=== PATIENT | male | born 1945 | race Caucasian/White ===

== ENCOUNTER 2023-11-26 06:19 | Observation (INO) ==
--- NOTE | 2023-11-01 09:32 | PAT Medication Instructions ---
Medication Instructions Date of Service November 01, 2023 Home Medications cetirizine 10 mg tablet (Zyrtec) 10 mg PO DAILY PRN Allergy Symptoms cholecalciferol (vitamin D3) 50 mcg (2,000 unit) tablet 50 mcg PO HS gabapentin 100 mg capsule 100 mg PO HS metoprolol succinate 50 mg tablet,extended release 24 hr 50 mg PO HS montelukast 10 mg tablet 10 mg PO HS omeprazole 20 mg capsule,delayed release 20 mg PO BID rosuvastatin 10 mg tablet 10 mg PO HS tamsulosin 0.4 mg capsule 0.4 mg PO HS DO NOT take the morning of surgery cetirizine 10 mg tablet (Zyrtec) 10 mg PO DAILY PRN Allergy Symptoms Take morning of surgery With a small sip of water, OTHERWISE NOTHING TO EAT OR DRINK AFTER MIDNIGHT: omeprazole 20 mg capsule,delayed release 20 mg PO BID Take evening before surgery cetirizine 10 mg tablet (Zyrtec) 10 mg PO DAILY PRN Allergy Symptoms (if needed) cholecalciferol (vitamin D3) 50 mcg (2,000 unit) tablet 50 mcg PO HS gabapentin 100 mg capsule 100 mg PO HS metoprolol succinate 50 mg tablet,extended release 24 hr 50 mg PO HS montelukast 10 mg tablet 10 mg PO HS omeprazole 20 mg capsule,delayed release 20 mg PO BID rosuvastatin 10 mg tablet 10 mg PO HS tamsulosin 0.4 mg capsule 0.4 mg PO HS Other Notes If you have any questions please call us at [phone] or [phone] or [phone] or [phone]
--- NOTE | 2023-11-04 10:34 | Anesthesiology Consultation ---
Date of Service November 04, 2023 Assessment & Plan (1) Encounter for pre-operative examination: - awaiting [facility] PCP response to optimization form regarding hyperkalemia and abnormal CXR. Surgeon's office made aware. Left message requesting patient return call. - will request 09/2023 cardiology office note, Dr. Ballesteros, and nuclear findings of 08/01/22 stress echo if available for chart completion. Chart Review Chart Review: Pending: Refer to Additional Notes / Consult section and Patient seen in Pre Admission Testing Teaching & Discussion Pre-Anesthesia Teaching/Discussion Notes: Instructed NPO after midnight before surgery, except medications with 15 cc of water. Medication instructions provided according to the PAT guidelines. History Surgery Operation Date: 11/26/23 12:20 Proposed Procedures p Right Total Knee Arthroplasty - Wicho Hernandez DO Height/Weight Height: 5 ft 8 in Weight: 89.1 kg Allergies Allergy/AdvReac Type Severity Reaction Status Date / Time azithromycin Allergy Severe Anaphylaxis Verified 11/04/23 14:16 Penicillins Allergy Intermediate FEET SWELL Verified 10/29/23 13:38 bee venom protein (honey bee) Allergy Verified 11/04/23 10:27 [id number] Reductase Allergy Verified 11/04/23 10:27 Inhibitor Medications Home Medications Medication Instructions Recorded Confirmed Last Taken gabapentin 100 mg capsule 100 mg PO HS 10/29/23 10/29/23 Unknown metoprolol succinate 50 mg 50 mg PO HS 10/29/23 10/29/23 Unknown tablet,extended release 24 hr montelukast 10 mg tablet 10 mg PO HS 10/29/23 10/29/23 Unknown omeprazole 20 mg capsule,delayed 20 mg PO BID 10/29/23 10/29/23 Unknown release rosuvastatin 10 mg tablet 10 mg PO HS 10/29/23 10/29/23 Unknown tamsulosin 0.4 mg capsule 0.4 mg PO HS 10/29/23 10/29/23 Unknown calcium carb-vit D3-minerals 600 1 tab PO QAM 11/04/23 11/04/23 Unknown mg calcium-400 unit tablet celecoxib 200 mg capsule 200 mg PO DAILY 11/04/23 11/04/23 Unknown Additional Notes: Medication list reconciled with home med list at PAT visit. He was instructed and it was written on provided medication instructions to contact surgeon's office for celecoxib instructions and to stop calcium vitamin D supplement the morning of surgery. He verbalized understanding and agreement, denied additional medication changes, questions or concerns. Past Medical History Medical History (Updated 11/04/23 @ 14:18 by Jess Garcia PA-C) CKD (chronic kidney disease) stage 3, GFR 30-59 ml/min Dysphagia occasionally due to hiatal hernia per pt; denies choking-chronic denies change or worsening GERD (gastroesophageal reflux disease) controlled, stable per pt Hearing deficit Hiatal hernia Hx of gout Hyperlipidemia Hypertension controlled, stable per pt Mild aortic valve stenosis Patient denies h/o stroke, seizures, heart attack, heart failure, DM, blood clots/DVTs or blood transfusions. Exercise / Class Metabolic Activity II 4-5 Yardwork/Stairs/Walk up hill (denies chest discomfort or shortness of breath with 1 FOS, ambulates with cane) Past Family History Family History Other No family history of adverse response to anesthesia Past Surgical History Surgical History H/O arthroscopy of right knee History of appendectomy History of colonoscopy History of lumbar surgery History of tonsillectomy History of tooth extraction History of total hip arthroplasty rt/left Hx of vasectomy Past Anesthesia History No Hx of Anesthesia Complications and No Family Hx of Anesthesia Complications History of PONV No Hx of PONV and No Hx of Motion Sickness Social History Smoking Status: Never smoker Do You Dip or Chew Tobacco: No (quit 07/2023) Hx Alcohol Use: Yes Alcohol type: beer alcohol intake frequency: 0-2 drinks per day Alcohol Intake Frequency Comment: 1-3 beers daily substance use type: does not use Review of Systems Snoring, denies witnessed apneas. Patient denies chest pain, shortness of breath, dyspnea on exertion, fever, chills, cough, wheezing, or palpitations. Physical Exam Vital Signs Vitals BP 166/80 manual (Pt notes some anxiety in clinic, states BP at home is usually 120s/70s) P 64 TEMP 98.2 SP02 97% on RA RESP 18 Physical Patient resting comfortably in chair in no acute distress, alert and oriented, responding appropriately throughout visit Full cervical extension range of motion without pain TMD 3.5 finger breadths Mallampati Score 3 Dentition: intact, denies chipped or loose teeth, caps/crowns, implants or bridges Lungs: normal respiratory effort. Good air movement, clear throughout to auscultation, no adventitious breath sounds Cardiac: regular rate and rhythm, no murmurs noted Carotid arteries: negative bruit bilat Lab Results Anesthesia Preop Results Results Anesthesia Widget: WBC 5.64 K/ul (4.8-10.8) 11/04/23 Hgb 13.9 g/dl (14.0-18.0) L 11/04/23 Hct 41.9 % (42.0-52.0) L 11/04/23 Plt 213 K/uL (130-400) 11/04/23 Na 139 mmol/L (136-145) 11/04/23 K 5.3 mmol/L (3.5-5.1) H 11/04/23 Cl 106 mmol/L (98-107) 11/04/23 CO2 28 mmol/L (21-32) 11/04/23 BUN 20 mg/dl (6-23) 11/04/23 Creat 1.13 mg/dl (0.6-1.4) 11/04/23 Glucose Level 111 mg/dl (70-99(Fasting)) H 11/04/23 PT 10.6 Seconds (9.0-12.0) 11/04/23 PTT 26 Seconds (21-31) 11/04/23 INR 1.0 (0.9-1.1) 11/04/23 Blood Type A Positive 11/04/23 Antibody Screen NEGATIVE 11/04/23 Testing Electrocardiogram Date: 11/04/23 NSR, rate 64 bpm Left axis deviation Chest X-Ray Date: 11/04/23 2.8 cm retrocardiac opacity, as described above. This is likely artifactual. However, a chest CT is recommended to exclude a pulmonary nodule. Echocardiogram Date: 09/14/23 EF 55% Mildly dilated LA No regional wall motion abnormalities Aortic valve is trileaflet and is moderately thickened. Degenerated AV, mild (ALICIA 1.2 cm2, mean PG 14.3 mmHg) Stress Test Date: 08/01/22 Lexiscan MPHR not reported Negative for ischemia Nuclear findings are reported separately
--- NOTE | 2023-11-26 06:31 | History & Physical Bridge Note ---
Date of Service November 26, 2023 History & Physical Bridge Note I have examined the patient, reviewed the History & Physical and in the interval since the performance of the History & Physical I have noted the following changes of clinical significance: no changes noted
[2023-11-26] MEDS ORDERED: ROPIVACAINE 0.5% 5 MG/ML 30 ML VIAL ONE (06:32)
[2023-11-26] MEDS ORDERED: BUPIVACAINE 0.5 % 5 MG/1 ML PF 10ML VIAL ONE (06:32)
[2023-11-26] MEDS: ACETAMINOPHEN 500 MG TAB PO SCH ×2 (06:55→22:56)
[2023-11-26] MEDS: GABAPENTIN 300 MG CAP PO SCH (06:55)
[2023-11-26] MEDS: LR 60ML/HR IV SCH (06:55)
[2023-11-26] MEDS: dexAMETHasone**PF** 10 MG/ML VIAL IV SCH (06:56)
[2023-11-26] MEDS ORDERED: MIDAZOLAM HCL 1 MG/ML 2ML VIAL ONE (06:56)
[2023-11-26] MEDS ORDERED: PROPOFOL IV EMULSION 10 MG/ML 20 ML VIAL IV ONE ×2 (06:59→09:21)
[2023-11-26] MEDS ORDERED: ePHEDrine sulfate 50 MG/ML AMP IV PRN (07:06)
[2023-11-26] MEDS ORDERED: fentaNYL citrate PF 100 MCG/2 ML VIAL IV PRN (07:06)
[2023-11-26] MEDS ORDERED: ONDANSETRON INJ 2 MG/ML 2 ML VIAL IV PRN ×2 (07:06→11:19)
[2023-11-26] MEDS ORDERED: ATROPINE SULFATE 0.1 MG/ML 10ML SYR IV PRN (07:06)
[2023-11-26] MEDS: TRANEXAMIC ACID 1,000 MG **IV Pre-op IV SCH (07:43)
[2023-11-26] MEDS: ceFAZolin 2000MG 2,000 MG/15 ML SYR IV SCH ×2 (07:55→14:46)
[2023-11-26] MEDS ORDERED: KETAMINE HCL 10MG/ML SYR ONE (08:12)
[2023-11-26] MEDS: ROPIVACAINE 0.5% HCL/PF 246 MG, Ketorolac (*for OR use only*) 30 MG, EPINEPHrine 30MG/3... INFIL SCH (08:38)
[2023-11-26] MEDS ORDERED: PHENYLEPHRINE 100MCG/ML 10ML SYR IV ONE (08:55)
--- NOTE | 2023-11-26 09:12 | Operative Report ---
PG Post Operative Report Pre & Post Diagnosis Operation Date: 11/26/23 08:00 Pre-Op Diagnosis: Degenerative Joint Disease Right Knee Post-Op Diagnosis: Degenerative Joint Disease Right Knee I identified the patient and participated in the time-out.: Yes Procedure Operation Date: 11/26/23 08:00 Actual Procedures p Right Total Knee Arthroplasty(Right) - Wicho Hernandez DO Surgeon Wicho Hernandez DO Manager Development Wicho Holman PA-C Estimated Blood Loss 30 Findings Consistent with Post-Op Diagnosis Specimens Right femoral and tibial bone Description of Procedure Implants used: I used a Vanesa Persona total knee arthroplasty system with a size 8 standard PS femur, F tibia, 34 oval patella, and a size 12 CPS polyethylene bearing. All components were cemented in place with Biomet cement. Tab arrived [facility] for the above procedure. He was seen in the preoperative holding area and the operative extremity was identified and signed. He was given a preoperative antibiotic, TXA, a spinal anesthetic and an adductor nerve block. He was taken back to the operating room and laid on the table in supine position. He was given basic sedation. The operative knee was then prepped and draped in sterile fashion. A timeout was done, and the patient and the operative extremity was properly identified. A midline incision was made directly over the patella. Dissection was taken down to the extensor mechanism. A medial parapatellar arthrotomy was used. The medial retinaculum was released and the fat pad was mostly excised. The knee was flexed and the ACL, PCL, and meniscus were removed. A drill was sent down the center of the femoral canal followed by an intramedullary elizabeth. Off that elizabeth a distal femoral cutting block was placed. 9 mm was resected off the distal femur at 5 of valgus. A posterior referencing AP sizing guide was then placed on the distal femur. The femur measured to be a size 8. 2 drill holes were placed in 3 of external rotation. A 4-in-1 cutting block was then impacted into place. Anterior, posterior, and chamfer cuts were then made. The proximal tibia was then exposed. An external tibial alignment guide was placed. A tibial cut guide was then anchored in place and the proximal tibia was then resected. The posterior aspect of the knee was then op ened up and any additional meniscus fragments and osteophytes were removed. The tibia measured to be a size F. The tibial plate was then placed in the appropriate rotation and the tibia was drilled and punched. Trial components were then placed. I used a size 12 CPS polyethylene insert. The knee was brought through a full range of motion and felt to be stable. The peg holes for the femoral component were then drilled. The patella was then everted and 9 mm was resected off the posterior aspect of the patella. The patella measured to be a size 34 oval. 3 peg holes were then drilled. A trial patella was placed. The knee was once again brought through a full range of motion and felt to be stable. Trial components were then removed. The surrounding soft tissues were injected with 100 cc of an orthopedic pain control cocktail. All components were then cemented into place with Biomet cement. The final polyethylene insert was then snapped into place. Once cement was dry the tourniquet was deflated. Hemostasis was obtained. A dilute betadyne lavage was then done for 3 minutes. The joint was then irrigated with normal saline solution. The medial parapatellar arthrotomy was then closed with #1 Vicryl suture. The skin was closed with 2-0 Vicryl, 3-0V lock suture, and kathy. A soft compressive dressing was placed. He was then transferred to a hospital bed and taken to the postanesthesia care unit in stable condition. He tolerated the procedure well. iWcho Holman PA-C, was present for the entire procedure. He was critical for patient positioning, prepping, draping, retraction exposure, wound closure and application of sterile dressing. I attest to the content of the Intraoperative Record and any orders documented therein. Any exceptions are noted below.
[2023-11-26] MEDS: TRANEXAMIC ACID 1,000 MG **IV Intra-op IV SCH (09:19)
--- NOTE | 2023-11-26 10:11 | XRay Report ---
TWO VIEWS RIGHT KNEE CLINICAL HISTORY: Postoperative examination. FINDINGS: AP and crosstable lateral portable views of the right knee are obtained. A right knee arthr oplasty is in near anatomic alignment. There has been undersurface remodeling of the patella. No acut e fracture is seen. There are expected postoperative changes around the knee including skin clips, so ft tissue edema, and subcutaneous gas. IMPRESSION: Expected postoperative changes status post right knee arthroplasty. No acute fracture is seen. ACT 112: Negative or not required by law. Electronically signed by: Waldo Nicholson M.D. 11/26/2023 10:10 AM
--- NOTE | 2023-11-26 11:17 | Anesthesiology Progress Note ---
Date of Service November 26, 2023 Anesthesia Post Procedure Vital Signs Vital Signs: Temp Pulse Pulse Resp BP Pulse Ox O2 Del Method 11/26/23 10:51 36.4 C L 64 16 154/78 H 99 Room Air 11/26/23 10:30 61 25 H 161/79 H 97 Room Air 11/26/23 10:20 36.4 C L 66 12 148/77 H 96 Room Air 11/26/23 10:10 60 16 153/74 H 94 Room Air 11/26/23 10:00 62 20 152/76 H 98 Oxymask 11/26/23 09:50 66 20 145/73 H 98 Oxymask 11/26/23 09:40 65 20 134/68 97 Oxymask 11/26/23 09:33 36.6 C 76 14 142/66 H 94 Oxymask 11/26/23 06:43 36.5 C 70 16 204/79 H 98 Room Air O2 Flow Rate 11/26/23 10:51 11/26/23 10:30 11/26/23 10:20 11/26/23 10:10 11/26/23 10:00 4 11/26/23 09:50 4 11/26/23 09:40 4 11/26/23 09:33 4 11/26/23 06:43 Pain Intensity Right Knee: Pain Intensity: 3 Notes Mental Status: alert / awake / arousable Patient Amnestic to Procedure: Yes Nausea / Vomiting: adequately controlled Pain: adequately controlled Airway Patency, RR, SpO2: stable & adequate BP & HR: stable & adequate Hydration State: stable & adequate Neuraxial Anesthesia: was administered and sensory block is resolving Anesthetic Complications: no major complications apparent
[2023-11-26] MEDS ORDERED: bisacodyL 10 MG SUPP PR PRN (11:19)
[2023-11-26] MEDS ORDERED: NALOXONE HCL 0.4 MG/1 ML VIAL/CARP IV PRN (11:19)
[2023-11-26] MEDS ORDERED: MAGNESIUM HYDROXIDE SUSP 30 ML UDC PO PRN (11:19)
[2023-11-26] MEDS ORDERED: METOCLOPRAMIDE HCL INJ 5 MG/ML 2 ML VIAL IV PRN (11:19)
[2023-11-26] MEDS ORDERED: HYDROmorphone INJ 0.5 MG/0.5 ML SYR IV PRN (11:19)
[2023-11-26] MEDS ORDERED: oxyCODONE HCL IR 5 MG TAB (IMMEDIATE RELEASE) PO PRN (11:19)
[2023-11-26] MEDS: SODIUM CHLORIDE 0.9% 1,000 ML IV SCH (13:17)
[2023-11-26] MEDS: KETOROLAC TROMETHAMINE 15 MG/ML VIAL IV SCH (14:01)
[2023-11-26] MEDS: DOCUSATE SODIUM 100 MG CAP PO SCH (20:36)
[2023-11-26] MEDS: METOPROLOL SUCC 50MG EXT REL TAB PO SCH (20:37)
[2023-11-26] MEDS: ASPIRIN 81 MG ECTAB PO SCH (20:37)
[2023-11-26] MEDS: GABAPENTIN 100 MG CAP PO SCH (20:38)
[2023-11-26] MEDS: ROSUVASTATIN CALCIUM 10 MG TAB PO SCH (20:38)
[2023-11-26] MEDS: MONTELUKAST SODIUM 10 MG TABLET PO SCH (20:38)
[2023-11-26] MEDS: TAMSULOSIN HCL 0.4 MG CAP PO SCH (20:38)
[2023-11-26] MEDS: SENNA 8.6 MG TAB PO SCH (20:38)
--- NOTE | 2023-11-27 06:31 | Orthopedic Progress Note ---
Date of Service November 27, 2023 Assessment & Plan (1) Status post right knee replacement: Overall he is doing well. He is not having much pain in the right knee. He will be seen by physical therapy today for ambulation and range of motion exercises. The nursing staff can change his dressing after physical therapy. He is on aspirin for DVT prophylaxis. He can be discharged home later today. He will follow-up orthopedics in 2 weeks. Stephane Barth was seen and examined at bedside this morning. Overall he is doing very well. He is not having much pain in the right knee. He has been up and ambulating to the bathroom. Has no complaints.. Review of Systems All systems reviewed & are unremarkable except as noted in HPI & below. Physical Exam On physical examination of the right knee, the dressing is clean and dry. His leg is out full extension. He has active dorsiflexion plantarflexion of his right ankle.. Results & Data Results & Data Laboratory Results . Diagnostic Findings Postoperative x-rays of the right knee show the prosthesis to be in anatomic alignment without any evidence of fracture complication, or loosening.. PG Care Time/CCT Total # of Minutes Spent Total Time Spent with Patient: Total time spent is greater than 50% in coordination of care (as documented) at patient's floor/unit and/or counseling patient: Coding Level of Care Code 25435 Post Operative Follow-Up Diagnoses Status post right knee replacement Z96.651
--- NOTE | 2023-11-27 06:32 | Discharge Summary ---
Date of Service November 27, 2023 Principal Diagnosis Same as "Discharge Diagnosis" noted below under Discharge Instructions. Discharge Exam On physical examination of the right knee, the dressing is clean and dry. His leg is out full extension. He has active dorsiflexion plantarflexion of his right ankle.. Discharge Data Procedures Performed Operation Date: 11/26/23 08:00 Actual Procedures p Right Total Knee Arthroplasty(Right) - Wicho Hernandez DO Ordered Studies 11/26/23 05:00 US - OR guided needle placemen Routine Hospital Course (1) Status post right knee replacement: On November 26, 2023 Tab arrived at [facility] and underwent a right knee replacement without complication. He had a spinal anesthetic. Postoperatively he was started on aspirin for DVT prophylaxis and transferred to the general orthopedic floors. His hospital course was uneventful. On postop day #1, his vital signs were stable and his pain was well-controlled. He was able to participate well with physical therapy doing ambulation and range of motion exercises. He was then discharged home. He will follow with orthopedics in 2 weeks. PG Care Time/CCT Total # of Minutes Spent Total Time Spent with Patient: Total time spent is greater than 50% in coordination of care (as documented) at patient's floor/unit and/or counseling patient: Discharge Plan Discharge Items Patient Disposition: Home - Self-Care Reason For Visit: Degenerative Joint Disease Right Knee Discharge Diagnosis: Right knee replacement Activity: Per Instructions section Non-emergency contact: Surgeon Call non-emergency contact if: your wound has increased redness and your wound has increased drainage Follow-up/Referrals: Faby Eduardo MD [Primary Care Provider] - Diet: Regular Addtl Attending Provider Instructions: Activity and Therapy Recommendations: * If you are using [facility] then therapy will be provided at your home until they feel you have accomplished all of your goals. * If you are using [facility] then Physical Therapy will be provided until they feel you are ready to start Outpatient Physical Therapy. * If you are not using home therapy then Outpatient Physical Therapy should start about 3-5 days from your day of surgery. Therapy will last about 6-10 weeks * It is important not to put a pillow under your knee when you are relaxing or sleeping. It is just as important to make sure you are getting your knee perfectly straight as it is to regain your knee bend. * You were shown a series of exercises in the hospital. Do these exercises three times each day including the exercises you were shown in physical therapy. * Get up and walk several times each day. For the first four weeks, try not to stand or walk for more than one hour at a time. If you do stand or walk for more than one hour, you will not hurt anything, but your leg will likely swell. * As you feel comfortable, you may change from the walker or crutches to a cane and then to independent walking. Medications: * Narcotic You will likely be sent home from the hospital with a prescription for the narcotic pain medication that worked best throughout your stay * Cefadroxil -take the antibiotic twice a day for 10 days to help prevent infection. * Aspirin Most patients will be required to take Aspirin 81mg twice a day for 6 weeks after surgery. This is obtained [id number] and a prescription is not necessary. * Other medications may be prescribed for specific circumstances. If you have any questions, please call the office at . * Resume previous home medications unless otherwise instructed TEDs/Elastic Stockings: The white elastic stockings help limit swelling and prevent blood clots from forming in your legs.~ The more you wear them, the more they work. Wear them for six weeks. Dressing Care: The dressing can be changed after physical therapy on postop day #1. Daily dry dressing changes for a few days, especially if the incision is still draining some. If the incision is not draining then you may leave the kathy open to air. If there is a little bit of drainage or if the kathy are getting stuck on your clothing then cover the incision with a dry dressing. The kathy will be removed at your 2 week follow-up appointment. Showering: You may shower 5 days from the day of surgery as long as the incision is no longer draining. You may shower with the kathy exposed. Let soapy water run over the kathy and pat them dry. Do not scrub or soak the incision. Things To Watch For: * Drainage from the incision site that occurs more than one week after your surgery. * Increased redness at the incision site. * Fever above 102 degrees Fahrenheit. * Unusual chest pain or shortness of breath. * Call [facility] at with any of the above problems Follow-Up Visit: Follow-up with Dr. Hernandez's PA (Wicho Holman) 2-3 weeks after your day of surgery. He will remove your kathy and answer any questions. If you have any additional questions or concerns, Dr Hernandez is usually in the office at the same time and will be available An appointment was probably scheduled when you signed-up for surgery in the office. If you have any questions call Office Instructions: More detailed instructions as well as Frequently Asked Questions were provided in a folder by our office when you signed-up for surgery. Please review these instructions when you get home. If you have any further questions or concerns, please feel free to call the office at [phone] Pending Studies at Discharge: No Stand-Alone Forms: [email or web address], Smoking Cessation Medications and DC Order Prescriptions: New oxycodone 5 mg Tablet 5 mg PO Q4H PRN (Reason: pain) Qty: 20 0RF cefadroxil 500 mg capsule 500 mg PO BID 10 Days Qty: 20 0RF aspirin 81 mg Tablet,Delayed Release (Dr/Ec) 81 mg PO BID 42 Days Qty: 0 0RF Continued metoprolol succinate 50 mg Tablet Extended Release 24 Hr 50 mg PO HS tamsulosin 0.4 mg Capsule 0.4 mg PO HS omeprazole 20 mg Capsule,Delayed Release(Dr/Ec) 20 mg PO BID montelukast 10 mg Tablet 10 mg PO HS gabapentin 100 mg Capsule 100 mg PO HS rosuvastatin 10 mg Tablet 10 mg PO HS calcium carbonate-vit D3-min [Calcium-Vitamin D] 600 mg calcium- 400 unit Tablet 1 tab PO QAM celecoxib 200 mg Capsule 200 mg PO DAILY Discharge Orders: Discharge Order (Routine); Ordered 11/27/23 Ordered By: Wicho Hernandez Admission Data Admit Date/Time: 11/26/23 09:37 Attending Provider: Wicho Hernandez Admit Provider: Wicho Hernandez Primary Care Provider: Faby Eduardo V. Other Providers: [facility]
[2023-11-27] MEDS: dexAMETHasone 4 MG TAB PO SCH (07:23)
[2023-11-27] MEDS: MULTIVITAMIN TAB PO SCH (07:23)
== END 2023-11-27 10:58 | disposition home or self-care (01) ==
LOC: 3E 06:19 → ASU 06:19